=== PATIENT | female | born 1960 | race African-American/Black ===

== ENCOUNTER 2016-06-05 19:22 | Emergency (ER) | payer MEDICARE, MEDICAID ==
[~2016-06-05] VITALS: Ht 172.7 cm; Wt 145.1 kg
[~2016-06-05 19:22] MED LIST: AMLO5TAB2 PO; IBUP-1027 PO; LISI1TAB7 PO
[2016-06-05 19:55] VITALS: BP 197/95
[2016-06-05] MEDS ORDERED: CETIRIZINE HCL 10 MG TABLET PO STA (20:15)
[2016-06-05] MEDS ORDERED: KETOTIFEN FUMARATE 0.025% OPHT SOLUTION 5ML BOTTLE. OU ONE (20:30)
--- NOTE | 2016-06-05 20:35 | PHYS DOC ---
Past Medical History Past Medical History: Arthritis, Asthma, Diabetes-Type II, High Cholesterol, Hypertension Additional Past Medical Histor: ALLERGIES Past Surgical History: Other Additional Past Surgical Histo: BREAST BIOPSY Alcohol Use: None Drug Use: None Adult General Chief Complaint Chief Complaint: EYE PROBLEMS HPI HPI Patient is a 55 year old female with history of hypertension high cholesterol asthma and seasonal allergies and diabetes type 2 who presents with a ruptured blood vessel on her left upper eye that she noted today. Patient states she's had allergy symptoms in the last couple days making her blow her nose very hard. Patient denies any fever. She has history of hypertension and took her blood pressure medicine prior to coming to the ED. She has no headache, chest pain or shortness of breath. Review of Systems Review of Systems Constitutional: Denies fever or chills [] Eyes: a ruptured blood vessel on her left upper eye HENT: Denies nasal congestion or sore throat [] Respiratory: Denies cough or shortness of breath [] Cardiovascular: No additional information not addressed in HPI [] GI: Denies abdominal pain, nausea, vomiting, bloody stools or diarrhea [] : Denies dysuria or hematuria [] Musculoskeletal: Denies back pain or joint pain [] Integument: Denies rash or skin lesions [] Neurologic: Denies headache, focal weakness or sensory changes [] Endocrine: Denies polyuria or polydipsia [] Current Medications Current Medications Current Medications Medications (Trade) Dose Ordered Sig/Marsha Start Time Stop Time Status Last Admin Dose Admin Cetirizine HCl (Zyrtec) 10 mg 1X STAT 06/05/16 20:15 06/05/16 20:23 DC Ketotifen Fumarate (Zaditor) 1 drop 1X ONCE 06/05/16 20:30 06/05/16 20:31 DC Allergies Allergies Allergies Coded Allergies Type Severity Reaction Last Updated Verified levofloxacin Allergy Intermediate 03/11/15 Yes sulfamethoxazole Allergy Intermediate 03/11/15 Yes trimethoprim Allergy Intermediate 03/11/15 Yes Physical Exam Physical Exam Constitutional: Well developed, well nourished, no acute distress, non-toxic appearance. [] HENT: Normocephalic, atraumatic, bilateral external ears normal, oropharynx moist, no oral exudates, nose normal. [] Eyes: PERRLA, EOMI, small subconjunctival hemorrhage noted on the left conjunctiva at 12 o'clock position. Neck: Normal range of motion, no tenderness, supple, no stridor. [] Cardiovascular:Heart rate regular rhythm, no murmur [] Lungs & Thorax: Bilateral breath sounds clear to auscultation [] Abdomen: Bowel sounds normal, soft, no tenderness, no masses, no pulsatile masses. [] Skin: Warm, dry, no erythema, no rash. [] Back: No tenderness, no CVA tenderness. [] Extremities: No tenderness, no cyanosis, no clubbing, ROM intact, no edema. [] Neurologic: Alert and oriented X 3, normal motor function, normal sensory function, no focal deficits noted. [] Psychologic: Affect normal, judgement normal, mood normal. [] Current Patient Data Vital Signs Vital Signs Date Time Temp Pulse Resp B/P Pulse Ox O2 Delivery O2 Flow Rate FiO2 06/05/16 19:55 98.0 72 20 99 Room Air 98.0 EKG EKG [] Radiology/Procedures Radiology/Procedures [] Course & Med Decision Making Course & Med Decision Making Pertinent Labs and Imaging studies reviewed. (See chart for details) Patient has subconjunctival hemorrhage that she noted today, she's had allergy symptoms and has been blowing her nose very hard which could've caused this. She also has history of hypertension with blood pressure at 197/95 on arrival to the ED, she states she took lisinopril, HCTZ and another blood pressure medicine prior to coming to the ED. She has no headache, she has no vision loss. Her eyes are teary consistent with allergic conjunctivitis. She was given Zaditor eyedrops in the ED as well as Zyrtec. She was encouraged to recheck her blood pressure today before going to bed and let her PCP know if it is still high. She has no cardiac or neurological symptoms right now. She was provided return precautions and discharged in stable condition. Dragon Disclaimer Dragon Disclaimer This electronic medical record was generated, in whole or in part, using a voice recognition dictation system. Departure Departure Impression: Primary Impression: Subconjunctival hemorrhage of left eye Additional Impressions: Accelerated hypertension Allergic conjunctivitis of left eye Disposition: 01 HOME, SELF-CARE Condition: STABLE Referrals: NON,STAFF (PCP) Follow-up with your doctor as soon as possible if your blood pressure is still high. Patient Instructions: Allergic Conjunctivitis, [id number], Subconjunctival Hemorrhage-Brief Additional Instructions: You were seen for subconjunctival hemorrhage which is a ruptured blood vessel in your eye. This could be caused by many things including blowing your nose hard, hypertension etc. Use the prescribed eyedrop as ordered 1-2 drops in every area twice a day for allergies. Take Zyrtec for allergies. Recheck your blood pressure when you get home, if it still elevated, contact your doctor. You can come back to the ED if you have any concerning symptoms including but not limited to chest pain or shortness of breath or vision loss. Scripts Cetirizine Hcl (Zyrtec)10 Mg Tablet1 Tab PO DAILY #30 TAB Ref 3 Prov:KARMEN CROSS APRN 06/05/16 Problem Qualifiers KARMEN CROSS APRN Jun 05, 2016 20:35
[2016-06-05] MEDS ORDERED: CETI10TA22 PO (20:41)
== END 2016-06-05 20:48 | disposition home or self-care (01) ==
LOC: ER 19:22
DX: H11.32 Conjunctival hemorrhage, left eye (principal); H10.9 Unspecified conjunctivitis; I10 Essential (primary) hypertension; J45.909 Unspecified asthma, uncomplicated; E78.00 Pure hypercholesterolemia, unspecified; E11.9 Type 2 diabetes mellitus without complications; M19.90 Unspecified osteoarthritis, unspecified site; Z88.1 Allergy status to other antibiotic agents
CPT/HCPCS: 99283

== ENCOUNTER 2016-07-15 10:26 | Emergency (ER) | payer MEDICARE, MEDICAID ==
[~2016-07-15] VITALS: Ht 172.7 cm; Wt 145.1 kg
[~2016-07-15 10:26] MED LIST changes: +CETI10TA22 PO
[2016-07-15 10:40] VITALS: BP 149/73
[2016-07-15] MEDS ORDERED: AMOX1TAB61 PO (11:16)
[2016-07-15] MEDS ORDERED: ERYT1OIN6 EACHEYE (11:16)
--- NOTE | 2016-07-15 11:16 | PHYS DOC ---
Past Medical History Past Medical History: Arthritis, Asthma, Diabetes-Type II, High Cholesterol, Hypertension, Other Additional Past Medical Histor: ALLERGIES Past Surgical History: Other Additional Past Surgical Histo: BREAST BIOPSY Alcohol Use: None Drug Use: None Adult General Chief Complaint Chief Complaint: EYE PROBLEMS HPI HPI Patient is a 55 year old female presents emergency department stating that she has had bilateral watery eyes with some yellow drainage coming from them for the last few days. She states that she has been taking her allergy medication as normal. She states that she has her normal nasal drainage and discharge. She denies any sinus discomfort. She denies cough congestion fever. Review of Systems Review of Systems Constitutional: Denies fever or chills [] Eyes: Denies change in visual acuity, C/o redness, bilateral eye burning[] HENT: Denies nasal congestion or sore throat [] Respiratory: Denies cough or shortness of breath [] Cardiovascular: No additional information not addressed in HPI [] GI: Denies abdominal pain, nausea, vomiting, bloody stools or diarrhea [] : Denies dysuria or hematuria [] Musculoskeletal: Denies back pain or joint pain [] Integument: Denies rash or skin lesions [] Neurologic: Denies headache, focal weakness or sensory changes [] Allergies Allergies Allergies Coded Allergies Type Severity Reaction Last Updated Verified levofloxacin Allergy Intermediate 03/11/15 Yes sulfamethoxazole Allergy Intermediate 03/11/15 Yes trimethoprim Allergy Intermediate 03/11/15 Yes Physical Exam Physical Exam Constitutional: Well developed, well nourished, no acute distress, non-toxic appearance. [] HENT: Normocephalic, atraumatic, bilateral external ears normal, oropharynx moist, no oral exudates, nose normal. Bilateral tympanic membranes appear to be normal. Throat has erythematous with no postnasal drip no uvula deviation noted patient with frontal sinus tenderness no maxillary sinus tenderness noted.Anterior cervical adenopathy noted Eyes: PERRLA, EOMI, bilateral conjunctiva appears to be red with yellow drainage noted inside the eye. Neck: Normal range of motion, no tenderness, supple, no stridor. [] Cardiovascular:Heart rate regular rhythm, no murmur [] Lungs & Thorax: Bilateral breath sounds clear to auscultation [] Skin: Warm, dry, no erythema, no rash. [] Back: No tenderness Extremities: No tenderness, no cyanosis, no clubbing, ROM intact, no edema. [] Neurologic: Alert and oriented X 3, normal motor function, normal sensory function, no focal deficits noted. [] Psychologic: Affect normal, judgement normal, mood normal. [] Current Patient Data Vital Signs Vital Signs Date Time Temp Pulse Resp B/P Pulse Ox O2 Delivery O2 Flow Rate FiO2 07/15/16 10:40 99 82 20 149/73 96 Room Air 99.0 EKG EKG [] Radiology/Procedures Radiology/Procedures [] Course & Med Decision Making Course & Med Decision Making Pertinent Labs and Imaging studies reviewed. (See chart for details) Patient will be discharged home in stable condition. She'll be placed on some Augmentin for sinusitis infection. We'll also provide her with eyedrops for conjunctivitis. She will be provided with a 2 and marketing operations specialist in which she can follow-up within 24 hours. Patient was provided with signs and symptoms to return back to emergency department. Patient agrees with discharge instructions treatment regimens and follow-up recommendations. [] Dragon Disclaimer Dragon Disclaimer This electronic medical record was generated, in whole or in part, using a voice recognition dictation system. Departure Departure Impression: Primary Impression: Allergic conjunctivitis of left eye Additional Impression: Acute sinusitis Disposition: 01 HOME, SELF-CARE Condition: STABLE Referrals: NON,STAFF (PCP) Riley HADDAD MD Patient Instructions: Allergic Conjunctivitis, [id number], Sinusitis, Easy-to -Read Additional Instructions: Activity as tolerated. Medications as prescribed. Continue with your allergy medications you can take at home. Washcloths to help with pain and discomfort for the eyes. If you're eyes are mattered shut use a warm washcloth to help remove the drainage and discharge. Follow-up with ophthalmology tomorrow. Return back to emergency prior signs and symptoms of become worse. Scripts Amoxicillin/Potassium Clav (Augmentin 875-125 Tablet)1 Each Tablet1 Tab PO BID # 20 TAB Prov:SARA UMANZOR APRN 07/15/16 Erythromycin Base (Erythromycin)3.5 Gm Oint...g.1 Norma EACHEYE TID #3.[address] in bilateral eye for the next 7 days Prov:SARA UMANZOR APRN 07/15/16 Problem Qualifiers SARA UMANZOR APRN Jul 15, 2016 11:16
== END 2016-07-15 11:18 | disposition home or self-care (01) ==
LOC: ER 10:26
DX: H10.12 Acute atopic conjunctivitis, left eye (principal); J01.10 Acute frontal sinusitis, unspecified; M19.90 Unspecified osteoarthritis, unspecified site; J45.909 Unspecified asthma, uncomplicated; E11.9 Type 2 diabetes mellitus without complications; E78.00 Pure hypercholesterolemia, unspecified; I10 Essential (primary) hypertension; Z88.1 Allergy status to other antibiotic agents; Z88.2 Allergy status to sulfonamides
CPT/HCPCS: 99283

== ENCOUNTER 2016-12-24 22:42 | Emergency (ER) | payer MEDICARE, MEDICAID ==
[~2016-12-24] VITALS: Ht 172.7 cm; Wt 145.1 kg
[~2016-12-24 22:42] MED LIST changes: +AMOX1TAB61 PO; +ERYT1OIN6 EACHEYE
[2016-12-24 23:08] VITALS: BP 215/99
[2016-12-24] MEDS ORDERED: AMLO10TA2 PO (23:17)
[2016-12-24] MEDS ORDERED: CLIN300C8 PO (23:17)
[2016-12-24] MEDS ORDERED: IBUP-1060 PO (23:17)
[2016-12-24] MEDS ORDERED: LISI-375 PO (23:17)
--- NOTE | 2016-12-24 23:17 | PHYS DOC ---
Past Medical History Past Medical History: Arthritis, Asthma, Diabetes-Type II, High Cholesterol, Hypertension, Other Additional Past Medical Histor: ALLERGIES Past Surgical History: Other Additional Past Surgical Histo: BREAST BIOPSY Alcohol Use: None Drug Use: None Adult General Chief Complaint Chief Complaint: DENTAL PROBLEM [facility] Patient is a 56 year old female presents to the emergency department with complaints of left lower dental pain. She also complains of high blood pressure stating that she is on her blood pressure medicine for 3-5 days because it is "lost in my car somewhere". Patient denies headache, lightheadedness, nausea, vomiting, chest pain, abdominal pain. She nausea as of breath. Review of Systems Review of Systems Constitutional: Denies fever or chills [] Eyes: Denies change in visual acuity, redness, or eye pain [] HENT: Oral pain Respiratory: Denies cough or shortness of breath [] Cardiovascular: No additional information not addressed in HPI [] GI: Denies abdominal pain, nausea, vomiting, bloody stools or diarrhea [] : Denies dysuria or hematuria [] Musculoskeletal: Denies back pain or joint pain [] Integument: Denies rash or skin lesions [] Neurologic: Denies headache, focal weakness or sensory changes [] Endocrine: Denies polyuria or polydipsia [] Allergies Allergies Allergies Coded Allergies Type Severity Reaction Last Updated Verified levofloxacin Allergy Intermediate 03/11/15 Yes sulfamethoxazole Allergy Intermediate 03/11/15 Yes trimethoprim Allergy Intermediate 03/11/15 Yes Physical Exam Physical Exam Constitutional: Well developed, well nourished, no acute distress, non-toxic appearance. [] HENT: Normocephalic, atraumatic, bilateral external ears normal, oropharynx moist, no oral exudates, nose normal. Left lower gingiva around tooth #20 with erythema, mild tenderness to palpate. [] Eyes: PERRLA, EOMI, conjunctiva normal, no discharge. [] Neck: Normal range of motion, no tenderness, supple, no stridor. [] Cardiovascular:Heart rate regular rhythm, no murmur [] Lungs & Thorax: Bilateral breath sounds clear to auscultation [] Abdomen: Bowel sounds normal, soft, no tenderness, no masses, no pulsatile masses. [] Skin: Warm, dry, no erythema, no rash. [] Back: No tenderness, no CVA tenderness. [] Extremities: No tenderness, no cyanosis, no clubbing, ROM intact, no edema. [] Neurologic: Alert and oriented X 3, normal motor function, normal sensory function, no focal deficits noted. [] Psychologic: Affect normal, judgement normal, mood normal. [] Current Patient Data Vital Signs Vital Signs Date Time Temp Pulse Resp B/P (MAP) Pulse Ox O2 Delivery O2 Flow Rate FiO2 12/24/16 23:08 97.3 81 20 95 Room Air 97.3 EKG EKG [] Radiology/Procedures Radiology/Procedures [] Course & Med Decision Making Course & Med Decision Making Pertinent Labs and Imaging studies reviewed. (See chart for details) [] Dragon Disclaimer Dragon Disclaimer This electronic medical record was generated, in whole or in part, using a voice recognition dictation system. Departure Departure Impression: Primary Impression: Hypertension Additional Impression: Odontalgia Disposition: HOME, SELF-CARE Condition: STABLE Referrals: MANUEL RODRIGUEZ SHANK CARRIER-C (PCP) Patient Instructions: Dental Pain, Hypertension Scripts Lisinopril/Hydrochlorothiazide (ZESTORETIC 20-25 MG TABLET) 1 Each Tablet 1 TAB PO DAILY, #30 TAB 5 Refills Prov: NITHYA PERLA APRN 12/24/16 Amlodipine Besylate (AMLODIPINE BESYLATE) 10 Mg Tablet 10 MG PO DAILY, #30 TAB Prov: NITHYA PERLA APRN 12/24/16 Ibuprofen (IBUPROFEN) 800 Mg Tablet 800 MG PO PRN Q6HRS Y for INFLAMMATION, #20 TAB Prov: NITHYA PERLA APRN 12/24/16 Clindamycin Hcl (CLINDAMYCIN HCL) 300 Mg Capsule 1 CAP PO TID, #30 CAP Prov: NITHYA PERLA APRN 12/24/16 Problem Qualifiers Primary Impression: Hypertension Hypertension type: unspecified Qualified Codes: I10 - Essential (primary) hypertension NITHYA PERLA APRN Dec 24, 2016 23:17
== END 2016-12-24 23:41 | disposition home or self-care (01) ==
LOC: ER 22:42
DX: K08.9 Disorder of teeth and supporting structures, unspecified (principal); I10 Essential (primary) hypertension; E11.9 Type 2 diabetes mellitus without complications; E78.00 Pure hypercholesterolemia, unspecified; J45.909 Unspecified asthma, uncomplicated; M19.90 Unspecified osteoarthritis, unspecified site; Z88.1 Allergy status to other antibiotic agents; Z88.2 Allergy status to sulfonamides; Z88.8 Allergy status to other drugs, medicaments and biological substances
CPT/HCPCS: 99283

== ENCOUNTER 2018-02-11 17:44 | Emergency (ER) | payer MEDICARE, MEDICAID ==
[~2018-02-11] VITALS: Ht 172.7 cm; Wt 145.1 kg
[~2018-02-11 17:44] MED LIST changes: +AMLO10TA6 PO; -AMLO5TAB2 PO; +AMLO5TAB7 PO; +CLIN300C8 PO; +IBUP-1060 PO; +LISI-375 PO
[2018-02-11 18:40] VITALS: BP 151/71
[2018-02-11] MEDS ORDERED: LIDOCAINE WITH 8.4% SOD BICARB 3 ML DISP.SYRIN. INJ ONE (18:45)
[2018-02-11] MEDS ORDERED: DIPHTH,PERTUSS(ACELL),TET TOX 0.5 ML DISP.SYRIN. VAX IM ONE (18:45)
--- NOTE | 2018-02-11 19:20 | RAD ---
EXAM: PA, oblique and lateral views of the right hand DATE: 02/11/2018 6:55 PM INDICATION: laceration on around 2 and 3 mc COMPARISON: No Prior FINDINGS/ IMPRESSION: Laceration at the dorsal aspect of the second third metacarpals with associated soft tissue swelling is seen. No definite retained radiopaque foreign body. No definite associated osseous abnormality. No evidence of acute fracture or dislocation. Electronically signed by: David Garay MD (02/11/2018 7:17 PM) [facility]
--- NOTE | 2018-02-11 19:26 | PHYS DOC ---
Past Medical History Past Medical History: Arthritis, Asthma, Diabetes-Type II, High Cholesterol, Hypertension, Other Additional Past Medical Histor: ALLERGIES Past Surgical History: Other Additional Past Surgical Histo: BREAST BIOPSY Alcohol Use: None Drug Use: None Adult General Chief Complaint Chief Complaint: LACERATION/AVULSION [facility] HPI Patient is a 57 year old female who presents with went to shut a door after and oriented with her niece and the niece was on the underside [facility] and the patient scraped her right hand fourth digit at the knuckle on a nail that was sticking out of the wall. Patient is a 2 some ear laceration. Edges are approximated. Patient states she does need a tetanus shot. She is diabetic and has hypertension. Review of Systems Review of Systems Constitutional: Denies fever or chills [] Eyes: Denies change in visual acuity, redness, or eye pain [] HENT: Denies nasal congestion or sore throat [] Respiratory: Denies cough or shortness of breath [] Cardiovascular: No additional information not addressed in HPI [] GI: Denies abdominal pain, nausea, vomiting, bloody stools or diarrhea [] : Denies dysuria or hematuria [] Musculoskeletal: Denies back pain or joint pain [] Integument: 2 cm laceration to the right hand fourth digit at the knuckle. Denies rash or skin lesions [] Neurologic: Denies headache, focal weakness or sensory changes [] Endocrine: Denies polyuria or polydipsia [] All other systems were reviewed and found to be within normal limits, except as documented in this note. Current Medications Current Medications Current Medications Medications (Trade) Dose Ordered Sig/Marsha Start Time Stop Time Status Last Admin Dose Admin Diphtheria/ Tetanus/Acell Pertussis (Boostrix) 0.5 ml ONCE ONCE 02/11/18 18:45 02/11/18 18:49 DC 02/11/18 19:16 0.5 ML Lidocaine/Sodium Bicarbonate (Buffered Lidocaine 1%) 3 ml 1X ONCE 02/11/18 18:45 02/11/18 18:49 DC 02/11/18 19:15 3 ML Allergies Allergies Allergies Coded Allergies Type Severity Reaction Last Updated Verified levofloxacin Allergy Intermediate 03/11/15 Yes sulfamethoxazole Allergy Intermediate 03/11/15 Yes trimethoprim Allergy Intermediate 03/11/15 Yes Physical Exam Physical Exam Constitutional: Well developed, well nourished, no acute distress, non-toxic appearance. [] HENT: Normocephalic, atraumatic, bilateral external ears normal, oropharynx moist, no oral exudates, nose normal. [] Eyes: PERRLA, EOMI, conjunctiva normal, no discharge. [] Neck: Normal range of motion, no tenderness, supple, no stridor. [] Cardiovascular:Heart rate regular rhythm, no murmur [] Lungs & Thorax: Bilateral breath sounds clear to auscultation [] Abdomen: Bowel sounds normal, soft, no tenderness, no masses, no pulsatile masses. [] Skin: 2 cm, approximated edged, laceration at the right hand fourth knuckle fourth finger. Bleeding Controlled. Warm, dry, no erythema, no rash. [] Back: No tenderness, no CVA tenderness. [] Extremities: No tenderness, no cyanosis, no clubbing, ROM intact, no edema. [] Neurologic: Alert and oriented X 3, normal motor function, normal sensory function, no focal deficits noted. [] Psychologic: Affect normal, judgement normal, mood normal. [] Current Patient Data Vital Signs Vital Signs Date Time Temp Pulse Resp B/P (MAP) Pulse Ox O2 Delivery O2 Flow Rate FiO2 02/11/18 18:40 98.0 88 18 151/71 (97) 98 Room Air 98.0 EKG EKG [] Radiology/Procedures Radiology/Procedures [] Impressions: [facility] [address] [place] [address] IMAGING REPORT Signed PATIENT: VERONICA BROOKS ACCOUNT: [id number] : 1960 LOCATION: ER AGE: 57 SEX: F EXAM STATUS: REG ER ORD. PHYSICIAN: SARA MARC APRN REASON: laceration PROCEDURE: HAND RIGHT 3V EXAM: PA, oblique and lateral views of the right hand DATE: 02/11/2018 6:55 PM INDICATION: laceration on around 2 and 3 mc COMPARISON: No Prior FINDINGS/ IMPRESSION: Laceration at the dorsal aspect of the second third metacarpals with associated soft tissue swelling is seen. No definite retained radiopaque foreign body. No definite associated osseous abnormality. No evidence of acute fracture or dislocation. Electronically signed by: David Zaragoza MD (02/11/2018 7:17 PM) [facility] DICTATED and SIGNED BY: DAVID ZARAGOZA MD DATE: 02/11/181915 Course & Med Decision Making Course & Med Decision Making Patient is a 57 year old female who presents with went to shut a door after and oriented with her niece and the niece was on the underside [facility] and the patient scraped her right hand fourth digit at the knuckle on a nail that was sticking out of the wall. Patient is a 2 some ear laceration. Edges are approximated. Patient states she does need a tetanus shot. She is diabetic and has hypertension. X-ray shows no acute findings. I will give her Keflex antibiotic prescription for prophylactic since she is diabetic. She is to follow up either with her primary care or here in the ED to have suture removal in 5-7 days or come in sooner if there are any signs of infection. The laceration is cleaned out with Betadine and flushed. Alert and oriented. Patient is stable and in no distress. Laceration Repair by me: Anesthesia: 1% lidocaine locally Location: Right hand fourth finger knuckle Tendon/Joint/Nerves: No injury Foreign body: None detected after copious irrigation and exploration Technique: 3 Simple Interrupted Sutures Complexity: No subcutaneous sutures/mucosal repair/edge excision Post Closure Length: 2 cm Patient's bleeding was easily controlled in the department and there is no indication of anemia. No evidence of compartment syndrome, neurologic injury, vascular injury, open joint, tendon laceration, or foreign body. Patient is appropriate for outpatient follow up. 48 hour wound check. Scar minimization instructions given. [] Dragon Disclaimer Dragon Disclaimer This electronic medical record was generated, in whole or in part, using a voice recognition dictation system. Departure Departure Impression: Primary Impression: Laceration Disposition: 01 HOME, SELF-CARE Condition: STABLE Referrals: MANUEL RODRIGUEZ-C (PCP) Patient Instructions: Laceration Care, Adult Additional Instructions: To the ED in 5-7 days have stitches removed. Take medications as prescribed. Scripts Cephalexin (KEFLEX) 500 Mg Capsule 500 MG PO QID for 5 Days, #20 CAP Prov: SARA MARC APRN 02/11/18 Attending Signature Attending Signature I have reviewed the PA/MUSIC STORE MANAGER's note and plan of care. I was available for consultation as needed during the patient's visit in the emergency department. I agree with the clinical impression, plan, and disposition. SARA MARC APRN Feb 11, 2018 19:26 DON PHAM DO Feb 13, 2018 10:59
[2018-02-11] MEDS ORDERED: CEPH-264 PO (19:55)
== END 2018-02-11 20:10 | disposition home or self-care (01) ==
LOC: ER 17:44
DX: S61.214A Laceration without foreign body of right ring finger without damage to nail, initial encounter (principal); E78.00 Pure hypercholesterolemia, unspecified; E11.9 Type 2 diabetes mellitus without complications; J45.909 Unspecified asthma, uncomplicated; I10 Essential (primary) hypertension; Z88.1 Allergy status to other antibiotic agents; Z88.2 Allergy status to sulfonamides; Z88.8 Allergy status to other drugs, medicaments and biological substances; W45.0XXA Nail entering through skin, initial encounter; Y93.89 Activity, other specified; Y92.89 Other specified places as the place of occurrence of the external cause; Y99.8 Other external cause status
CPT/HCPCS: 12001; 73130; 90471; 90715; 99284-25; 99285-25

== ENCOUNTER 2018-02-28 15:29 | Emergency (ER) | payer MEDICARE, MEDICAID ==
[~2018-02-28] VITALS: Ht 177.8 cm; Wt 145.1 kg
[~2018-02-28 15:29] MED LIST changes: +CEPH-264 PO
[2018-02-28 15:42] VITALS: BP 201/90
--- NOTE | 2018-02-28 15:42 | PHYS DOC ---
Past Medical History Past Medical History: Arthritis, Asthma, Diabetes-Type II, High Cholesterol, Hypertension, Other Additional Past Medical Histor: ALLERGIES Past Surgical History: Other Additional Past Surgical Histo: BREAST BIOPSY Alcohol Use: None Drug Use: None Adult General Chief Complaint Chief Complaint: SUTURE/STAPLE REMOVAL HPI HPI Patient is a 57 year old female who presents for suture removal from the right hand. She states sutures have been in for 12 days. Patient denies any issues with the wound healing. Review of Systems Review of Systems Constitutional: Denies fever or chills [] Musculoskeletal: Denies back pain or joint pain [] Integument: Visit for suture removal from the right hand Neurologic: Denies headache, focal weakness or sensory changes [] All other systems were reviewed and found to be within normal limits, except as documented in this note. Allergies Allergies Allergies Coded Allergies Type Severity Reaction Last Updated Verified levofloxacin Allergy Intermediate 03/11/15 Yes sulfamethoxazole Allergy Intermediate 03/11/15 Yes trimethoprim Allergy Intermediate 03/11/15 Yes Physical Exam Physical Exam Constitutional: Well developed, well nourished, no acute distress, non-toxic appearance. [] Skin: Warm, dry, no erythema, no rash. Right hand along the fifth knuckle with well approximated laceration site with 2 interrupted sutures. No signs of infection. Back: No tenderness, no CVA tenderness. [] Extremities: No tenderness, no cyanosis, no clubbing, ROM intact, no edema. [] Neurologic: Alert and oriented X 3, normal motor function, normal sensory function, no focal deficits noted. [] Psychologic: Affect normal, judgement normal, mood normal. [] EKG EKG [] Radiology/Procedures Radiology/Procedures [] Course & Med Decision Making Course & Med Decision Making Pertinent Labs and Imaging studies reviewed. (See chart for details) This is a 57 year-old female presenting from for suture removal. Patient had 2 interrupted sutures on the right hand which were removed by me. No signs of infection to the area. Follow-up with PCP as needed. Dragon Disclaimer Dragon Disclaimer This electronic medical record was generated, in whole or in part, using a voice recognition dictation system. Departure Departure Impression: Primary Impression: Visit for suture removal Disposition: 01 HOME, SELF-CARE Condition: STABLE Referrals: MANUEL RODRIGUEZ-Amanuel (PCP) follow up with your doctor as needed Patient Instructions: Suture Removal-Brief Additional Instructions: We removed stitches from your right hand. Keep the area clean and dry. Follow- up with your doctor as needed. KARMEN CROSS APRN Feb 28, 2018 15:42
== END 2018-02-28 15:53 | disposition home or self-care (01) ==
LOC: ER 15:29
DX: S61.411D Laceration without foreign body of right hand, subsequent encounter (principal); M19.90 Unspecified osteoarthritis, unspecified site; J45.909 Unspecified asthma, uncomplicated; E78.00 Pure hypercholesterolemia, unspecified; I10 Essential (primary) hypertension; E11.9 Type 2 diabetes mellitus without complications; Z88.1 Allergy status to other antibiotic agents; Z88.2 Allergy status to sulfonamides; X58.XXXD Exposure to other specified factors, subsequent encounter
CPT/HCPCS: 99281

== ENCOUNTER 2019-05-09 17:27 | Emergency (ER) | payer MEDICAID, MEDICARE ==
[~2019-05-09] VITALS: Ht 172.7 cm; Wt 143.1 kg
[~2019-05-09 17:27] MED LIST changes: -AMLO10TA6 PO; +AMLO10TA8 PO; +AMLO5TAB10 PO; -AMLO5TAB7 PO; -CETI10TA22 PO; +CETI10TA24 PO; +LISI1TAB20 PO; -LISI1TAB7 PO
[2019-05-09 19:41] VITALS: BP 148/76
[2019-05-09] MEDS ORDERED: ACETAMINOPHEN 500 MG TABLET PO ONE (20:00)
[2019-05-09] MEDS ORDERED: magic mouthwash SWSP (20:14)
--- NOTE | 2019-05-09 20:14 | PHYS DOC ---
Past Medical History Past Medical History: Arthritis, Asthma, Diabetes-Type II, High Cholesterol, Hypertension, Other Additional Past Medical Histor: ALLERGIES Past Surgical History: Other Additional Past Surgical Histo: BREAST BIOPSY Smoking Status: Never Smoker Alcohol Use: None Drug Use: None Adult General Chief Complaint Chief Complaint: SORE THROAT HPI HPI Patient is a 58 year old AA female who presents to the emergency department with complaints of feeling like something is stuck in the back of her throat since awakening today. She denies any difficulty breathing, or swallowing. She states that the back portion of her mouth feels like it is full. She denies any fever, ear pain, cough, shortness of breath, wheezing, nausea, vomiting, diarrhea, abdominal pain, chest pain, palpitations. She states that it feels like her upper palate has fallen down. Patient denies any known injury. She cur rently denies the pain. Review of Systems Review of Systems All other ROS is negative unless otherwise noted in HPI. Current Medications Current Medications Current Medications Medications (Trade) Dose Ordered Sig/Marsha Start Time Stop Time Status Last Admin Dose Admin Acetaminophen (Tylenol) 1,000 mg 1X ONCE 05/09/19 20:00 05/09/19 20:02 DC Allergies Allergies Allergies Coded Allergies Type Severity Reaction Last Updated Verified levofloxacin Allergy Intermediate 03/11/15 Yes sulfamethoxazole Allergy Intermediate 03/11/15 Yes trimethoprim Allergy Intermediate 03/11/15 Yes Physical Exam Physical Exam See Above Constitutional: Well developed, well nourished, no acute distress, non-toxic appearance, obese. [] HENT: Normocephalic, atraumatic, bilateral external ears normal, oropharynx moist, nose normal; yellow colored ulceration noted to right lateral side of the uvula consistent with a fist ulcer, mild swelling of uvula noted, posterior pharynx is normal, 2+ tonsils bilaterally without exudate Eyes: PERRLA, EOMI, conjunctiva normal, no discharge. [] Neck: Normal range of motion, no tenderness, supple, no stridor. [] Cardiovascular:Heart rate regular rhythm Lungs & Thorax: Bilateral breath sounds clear to auscultation, Respirations even and unlabored, no retractions, no respiratory distress [] Skin: Warm, dry, no erythema, no rash. [] Back: No tenderness Extremities: No cyanosis, ROM intact Neurologic: Alert and oriented X 3, no focal deficits noted. [] Psychologic: Affect normal, judgement normal, mood normal. [] Current Patient Data Vital Signs Vital Signs Date Time Temp Pulse Resp B/P (MAP) Pulse Ox O2 Delivery O2 Flow Rate FiO2 05/09/19 19:41 76 16 148/76 (100) 99 Room Air 05/09/19 19:01 98.4 98.4 EKG EKG [] Radiology/Procedures Radiology/Procedures [] Course & Med Decision Making Course & Med Decision Making Pertinent Labs and Imaging studies reviewed. (See chart for details) [] Dragon Disclaimer Dragon Disclaimer This electronic medical record was generated, in whole or in part, using a voice recognition dictation system. Departure Departure Impression: Primary Impression: Swollen uvula Additional Impression: Minor aphthous ulceration Disposition: HOME, SELF-CARE Condition: STABLE Referrals: NO PCP (PCP) Patient Instructions: Oral Ulcers Additional Instructions: Fill the prescription and use as directed. Recommend that you avoid foods that are spicy, acetic, crunchy, or carbonated while the ulceration heals. Recommend bland diet. Follow up with your primary care doctor if symptoms persist. Return to the ER if symptoms worsen. Scripts [magic mouthwash] No Conflict Check 10 ML SWSP Q4-6HRS PRN for PAIN for 4 Days, #120 ML 0 Refills mix equal parts benadryl elixir, viscous lidocaine, and maalox Prov: TRINI MICHAEL APRN 05/09/19 Problem Qualifiers TRINI MICHAEL APRN May 09, 2019 20:14
== END 2019-05-09 20:30 | disposition home or self-care (01) ==
LOC: ER 17:27
DX: K12.0 Recurrent oral aphthae (principal); K13.79 Other lesions of oral mucosa; E11.9 Type 2 diabetes mellitus without complications; E78.00 Pure hypercholesterolemia, unspecified; I10 Essential (primary) hypertension; J45.909 Unspecified asthma, uncomplicated; Z88.1 Allergy status to other antibiotic agents; Z88.2 Allergy status to sulfonamides
CPT/HCPCS: 99283

== ENCOUNTER 2019-06-25 15:43 | Emergency (ER) | payer MEDICARE, MEDICAID ==
[~2019-06-25] VITALS: Ht 172.7 cm; Wt 148.0 kg
[~2019-06-25 15:43] MED LIST changes: +magic mouthwash SWSP
[2019-06-25] MEDS ORDERED: MORPHINE SULFATE 10 MG/ML VIAL. IV ONE (16:45)
[2019-06-25] MEDS ORDERED: IV NORMAL SALINE 1000ML BAG 1,000 ML IV ONE (16:45)
[2019-06-25] MEDS ORDERED: FAMOTIDINE 20 MG/2 ML VIAL IVP ONE (16:45)
[2019-06-25] MEDS ORDERED: ONDANSETRON PF 4 MG/2 ML VIAL. IVP ONE (16:45)
[2019-06-25 16:57] LABS: BILIRUBIN,URINE NEGATIVE (NEG); CLARITY,URINE CLEAR; COLOR,URINE YELLOW; NITRITE,URINE NEGATIVE (NEG); PH,URINE 6.5 (<5.0-8.0); PROTEIN,URINE NEGATIVE (NEG-TRACE)
[2019-06-25 17:02] LABS: CALCIUM 9.4 mg/dL (8.5-10.1); GFR 69.1; POTASSIUM 3.8 mmol/L (3.5-5.1)
[2019-06-25 17:02] LABS: BARBITURATES NEG (NEG); BENZODIAZEPINES NEG (NEG); CANNABINOIDS NEG (NEG); COCAINE NEG (NEG); METHADONE NEG (NEG); OPIATES NEG (NEG); PHENCYCLIDINE NEG (NEG)
[2019-06-25 17:08] LABS: ALBUMIN 3.4 g/dL (3.4-5.0); ALBUMIN/GLOBULIN RATIO 0.7 (1.0-1.7); C-REACTIVE PROTEIN 29.4 mg/L (0-3.3); MAGNESIUM 1.7 mg/dL (1.8-2.4); TOTAL BILIRUBIN 0.7 mg/dL (0.2-1.0); TOTAL PROTEIN 8.6 g/dL (6.4-8.2)
[2019-06-25 17:10] LABS: BACTERIA,URINE FEW /HPF (0-FEW); SQUAMOUS EPITHELIAL CELL,UR FEW /LPF; WBC,URINE OCC /HPF (0-4)
[2019-06-25 17:11] LABS: RBC,URINE 0 /HPF (0-2)
[2019-06-25 17:17] LABS: AMPHETAMINE/METHAMPHETAMINE NEG (NEG)
[2019-06-25] MEDS ORDERED: IOHEXOL 300 MG/ML 100ML VIAL. IV ONE (17:30)
[2019-06-25] MEDS ORDERED: CONTRAST GIVEN. MC PRN (17:30)
--- NOTE | 2019-06-25 18:08 | RAD ---
CT abdomen pelvis with contrast dated 06/25/2019. No comparison available. CLINICAL INDICATION: Abdominal pain. TECHNIQUE: Contiguous axial imaging the abdomen and pelvis performed after the administration of 75 cc Omnipaque 300. One or more of the following individualized dose reduction techniques were utilized for this examination: 1. Automated exposure control 2. Adjustment of the mA and/or kV according to patient size 3. Use of iterative reconstruction technique. FINDINGS: Limited images of the lung bases are clear. Heart size is upper limits of normal. No pleural or pericardial effusion. There are scattered coronary calcifications. Liver is homogeneous in attenuation. No apparent mass. Biliary tree normal in caliber. There is heterogeneous density in the gallbladder lumen suggesting sludge and/or stones. Spleen is normal in size. Pancreas is atrophic. Adrenal glands are unremarkable. There is mild left hydronephrosis and hydroureter to the level the pelvis. Kidneys are otherwise symmetric. There is a mildly dilated loops of fluid-filled proximal small bowel with distal small bowel collapse. The colon and appendix are unremarkable. No lymphadenopathy. There is a trace amount of free fluid at the left paracolic gutter. Uterus is enlarged and heterogeneous, measuring up to 16.7 cm. Ovaries are not well evaluated. There is a trace amount of free pelvic fluid. No pelvic lymphadenopathy. Bone windows show no acute findings. Mild multilevel spondylosis. Small umbilical hernia containing only fat. IMPRESSION: 1. Enlarged heterogeneous uterus, possibly related to fibroid. Uterine malignancy cannot be excluded. Correlate with any prior imaging studies to assess for interval change. 2. Mildly dilated fluid-filled loops of proximal small bowel with distal small bowel collapse. An exact transition point is not identified. This could be related to ileus or enteritis. Partial small bowel obstruction cannot be excluded in the absence of oral contrast. 3. Mild left-sided hydronephrosis and hydroureter to the level of the large pelvic mass, likely related to extrinsic compression distally. 4. Cholelithiasis. Electronically signed by: Jack Herr MD (06/25/2019 6:05 PM) [id number]
[2019-06-25 18:26] LABS: BASO # 0.1 x10^3/uL (0.0-0.2); BASO % 1 % (0-3); EOS # 0.2 x10^3/uL (0.0-0.7); EOS % 2 % (0-3); HEMOGLOBIN 13.2 g/dL (12.0-15.5); LYMPH # 2.8 x10^3/uL (1.0-4.8); LYMPH % 23 % (24-48); MEAN CORPUSCULAR HEMOGLOBIN 28 pg (25-35); MEAN CORPUSCULAR HGB CONC 32 g/dL (31-37); MEAN CORPUSCULAR VOLUME 87 fL (79-100); MONO # 0.9 x10^3/uL (0.0-1.1); MONO % 8 % (0-9); NEUT # 8.2 x10^3/uL (1.8-7.7); NEUT % 67 % (31-73); PLATELET COUNT 330 x10^3/uL (140-400); RED BLOOD COUNT 4.71 x10^6/uL (3.50-5.40); RED CELL DISTRIBUTION WIDTH 12.2 % (11.5-14.5); WHITE BLOOD COUNT 12.1 x10^3/uL (4.0-11.0)
[2019-06-25] MEDS ORDERED: BISACODYL 5 MG TABLET.DR. PO STA (18:44)
[2019-06-25] MEDS ORDERED: LABETALOL 20 MG/4 ML DISP.SYRIN. IVP ONE (18:45)
[2019-06-25] MEDS ORDERED: MAGNESIUM CITRATE 296 ML SOLUTION. PO ONE (18:45)
[2019-06-25] MEDS ORDERED: DICY20TA3 PO (19:20)
[2019-06-25] MEDS ORDERED: ONDA4TAB7 PO (19:20)
--- NOTE | 2019-06-25 19:20 | PHYS DOC ---
Past Medical History Past Medical History: Arthritis, Asthma, Diabetes-Type II, High Cholesterol, Hypertension, Other Additional Past Medical Histor: ALLERGIES (KARMEN CROSS APRN) Past Surgical History: Other Additional Past Surgical Histo: BREAST BIOPSY (KARMEN CROSS APRN) Smoking Status: Never Smoker Alcohol Use: None Drug Use: None (KARMEN CROSS APRN) Attending Signature I have participated in the care of this patient and I have reviewed and agree with all pertinent clinical information above including history, exam, and recommendations. (EVIN ALVARENGA MD) Adult General Chief Complaint Chief Complaint: ABDOMINAL PAIN HPI HPI Patient is a 58 year old female with history of hypertension, diabetes type 2, high cholesterol, morbidly obese, chronic constipation for over 25 years, who presents to the ED today complaining of 10 out of 10 left-sided abdominal pain that began 2 days ago with intermittent episodes of nausea and vomiting. Patient denies any diarrhea. Reports her last bowel movement was yesterday and very had. She states she has chronic constipation and has followed up with multiple doctors including her own PCP and "they do not listen to her". She continues to report she was seen at [facility] yesterday for the same complaints and they worked her up. She states they did not send her home with any pain medicine. She reports the told that she has fibroids and told that she will receive a phone call from an [employer] but she has not received any call. Patient is very talkative. (KARMEN CROSS APRN) Review of Systems Review of Systems Constitutional: Denies fever or chills [] Eyes: Denies change in visual acuity, redness, or eye pain [] HENT: Denies nasal congestion or sore throat [] Respiratory: Denies cough or shortness of breath [] Cardiovascular: No additional information not addressed in HPI [] GI: Reports abdominal pain, vomiting, constipation, denies bloody stools or diarrhea [] : Denies dysuria or hematuria [] Musculoskeletal: Denies back pain or joint pain [] Integument: Denies rash or skin lesions [] Neurologic: Denies headache, focal weakness or sensory changes [] All other systems were reviewed and found to be within normal limits, except as documented in this note. (KARMEN CROSS APRN) Current Medications Current Medications Current Medications Medications (Trade) Dose Ordered Sig/Marsha Start Time Stop Time Status Last Admin Dose Admin Bisacodyl (Dulcolax Tab) 10 mg 1X STAT 06/25/19 18:44 06/25/19 18:48 DC 06/25/19 19:18 10 MG Famotidine (Pepcid Vial) 20 mg 1X ONCE 06/25/19 16:45 06/25/19 16:48 DC 06/25/19 17:21 20 MG Info (CONTRAST GIVEN -- Rx MONITORING) 1 each PRN DAILY PRN 06/25/19 17:30 06/25/19 20:19 DC Iohexol (Omnipaque 300 Mg/ml) 75 ml 1X ONCE 06/25/19 17:30 06/25/19 17:31 DC 06/25/19 17:45 75 ML Labetalol HCl (Normodyne Iv Push) 10 mg 1X ONCE 06/25/19 18:45 06/25/19 18:48 DC 06/25/19 19:19 10 MG Magnesium Citrate (Citroma) 296 ml 1X ONCE 06/25/19 18:45 06/25/19 18:48 DC 06/25/19 19:18 296 ML Morphine Sulfate (Morphine Sulfate) 5 mg 1X ONCE 06/25/19 16:45 06/25/19 16:48 DC 06/25/19 17:22 5 MG Ondansetron HCl (Zofran) 4 mg 1X ONCE 06/25/19 16:45 06/25/19 16:48 DC 06/25/19 17:22 4 MG Sodium Chloride 1,000 ml @ 1,000 mls/hr 1X ONCE 06/25/19 16:45 06/25/19 17:44 DC 06/25/19 17:25 1,000 MLS/HR (EVIN ALVARENGA MD) Allergies Allergies Allergies Coded Allergies Type Severity Reaction Last Updated Verified levofloxacin Allergy Intermediate 03/11/15 Yes sulfamethoxazole Allergy Intermediate 03/11/15 Yes trimethoprim Allergy Intermediate 03/11/15 Yes (EVIN ALVARENGA MD) Physical Exam Physical Exam Constitutional: Well developed, well nourished, no acute distress, non-toxic appearance. [] HENT: Normocephalic, atraumatic, bilateral external ears normal, oropharynx moist, no oral exudates, nose normal. [] Eyes: PERRLA, EOMI, conjunctiva normal, no discharge. [] Neck: Normal range of motion, no tenderness, supple, no stridor. [] Cardiovascular:Heart rate regular rhythm, no murmur [] Lungs & Thorax: Bilateral breath sounds clear to auscultation [] Abdomen: Obese abdomen. Bowel sounds normal, soft, diffuse tenderness throughout to the abdomen was on the left upper and lower quadrant, no masses, no pulsatile masses. No right lower quadrant tenderness Skin: Warm, dry, no erythema, no rash. [] Back: No tenderness, no CVA tenderness. [] Extremities: No tenderness, no cyanosis, no clubbing, ROM intact, no edema. [] Neurologic: Alert and oriented X 3, normal motor function, normal sensory function, no focal deficits noted. [] Psychologic: Very talkative patient (KARMEN CROSS APRN) Current Patient Data Vital Signs Vital Signs Date Time Temp Pulse Resp B/P (MAP) Pulse Ox O2 Delivery O2 Flow Rate FiO2 06/25/19 19:52 80 197/106 (136) 95 Room Air 06/25/19 16:05 98.5 18 98.5 (EVIN ALVARENGA MD) Lab Values Laboratory Tests Test 06/25/19 16:05 06/25/19 16:33 Urine Collection Type Unknown Urine Color Yellow Urine Clarity Clear Urine pH 6.5 (<5.0-8.0) Urine Specific [place] 1.015 (1.000-1.030) Urine Protein Negative mg/dL (NEG-TRACE) Urine Glucose (UA) 100 mg/dL (NEG) Urine Ketones (Stick) Negative mg/dL (NEG) Urine Blood Negative (NEG) Urine Nitrite Negative (NEG) Urine Bilirubin Negative (NEG) Urine Urobilinogen Dipstick 1.0 mg/dL (0.2 mg/dL) Urine Leukocyte Esterase Negative (NEG) Urine RBC 0 /HPF (0-2) Urine WBC Occ /HPF (0-4) Urine Squamous Epithelial Cells Few /LPF Urine Bacteria Few /HPF (0-FEW) Urine Opiates Screen Neg (NEG) Urine Methadone Screen Neg (NEG) Urine Barbiturates Neg (NEG) Urine Phencyclidine Screen Neg (NEG) Urine Amphetamine/Methamphetamine Neg (NEG) Urine Benzodiazepines Screen Neg (NEG) Urine Cocaine Screen Neg (NEG) Urine Cannabinoids Screen Neg (NEG) Urine Ethyl Alcohol Neg (NEG) White Blood Count 12.1 x10^3/uL (4.0-11.0) H Red Blood Count 4.71 x10^6/uL (3.50-5.40) Hemoglobin 13.2 g/dL (12.0-15.5) Hematocrit 41.0 % (36.0-47.0) Mean Corpuscular Volume 87 fL (79-100) Mean Corpuscular Hemoglobin 28 pg (25-35) Mean Corpuscular Hemoglobin Concent 32 g/dL (31-37) Red Cell Distribution Width 12.2 % (11.5-14.5) Platelet Count 330 x10^3/uL (140-400) Neutrophils (%) (Auto) 67 % (31-73) Lymphocytes (%) (Auto) 23 % (24-48) L Monocytes (%) (Auto) 8 % (0-9) Eosinophils (%) (Auto) 2 % (0-3) Basophils (%) (Auto) 1 % (0-3) Neutrophils # (Auto) 8.2 x10^3/uL (1.8-7.7) H Lymphocytes # (Auto) 2.8 x10^3/uL (1.0-4.8) Monocytes # (Auto) 0.9 x10^3/uL (0.0-1.1) Eosinophils # (Auto) 0.2 x10^3/uL (0.0-0.7) Basophils # (Auto) 0.1 x10^3/uL (0.0-0.2) Sodium Level 131 mmol/L (136-145) L Potassium Level 3.8 mmol/L (3.5-5.1) Chloride Level 96 mmol/L (98-107) L Carbon Dioxide Level 27 mmol/L (21-32) Anion Gap 8 (6-14) Blood Urea Nitrogen 9 mg/dL (7-20) Creatinine 1.0 mg/dL (0.6-1.0) Estimated GFR (Cockcroft-Gault) 69.1 BUN/Creatinine Ratio 9 (6-20) Glucose Level 233 mg/dL (70-99) H Calcium Level 9.4 mg/dL (8.5-10.1) Magnesium Level 1.7 mg/dL (1.8-2.4) L Total Bilirubin 0.7 mg/dL (0.2-1.0) Aspartate Amino Transferase (AST) 15 U/L (15-37) Alanine Aminotransferase (ALT) 21 U/L (14-59) Alkaline Phosphatase 86 U/L (46-116) C-Reactive Protein, Quantitative 29.4 mg/L (0-3.3) H Total Protein 8.6 g/dL (6.4-8.2) H Albumin 3.4 g/dL (3.4-5.0) Albumin/Globulin Ratio 0.7 (1.0-1.7) L Lipase 52 U/L (73-393) L Ethyl Alcohol Level < 10 mg/dL (0-10) Laboratory Tests 06/25/19 16:33 Laboratory Tests 06/25/19 16:33 (EVIN ALVARENGA MD) EKG EKG [] (KARMEN CROSS APRN) Radiology/Procedures Radiology/Procedures []PROCEDURE: CT ABD PELV W/ IV CONTRST ONLY CT abdomen pelvis with contrast dated 06/25/2019. No comparison available. CLINICAL INDICATION: Abdominal pain. TECHNIQUE: Contiguous axial imaging the abdomen and pelvis performed after the administration of 75 cc Omnipaque 300. One or more of the following individualized dose reduction techniques were utilized for this examination: 1. Automated exposure control 2. Adjustment of the mA and/or kV according to patient size 3. Use of iterative reconstruction technique. FINDINGS: Limited images of the lung bases are clear. Heart size is upper limits of normal. No pleural or pericardial effusion. There are scattered coronary calcifications. Liver is homogeneous in attenuation. No apparent mass. Biliary tree normal in caliber. There is heterogeneous density in the gallbladder lumen suggesting sludge and/or stones. Spleen is normal in size. Pancreas is atrophic. Adrenal glands are unremarkable. There is mild left hydronephrosis and hydroureter to the level the pelvis. Kidneys are otherwise symmetric. There is a mildly dilated loops of fluid-filled proximal small bowel with distal small bowel collapse. The colon and appendix are unremarkable. No lymphadenopathy. There is a trace amount of free fluid at the left paracolic gutter. Uterus is enlarged and heterogeneous, measuring up to 16.7 cm. Ovaries are not well evaluated. There is a trace amount of free pelvic fluid. No pelvic lymphadenopathy. Bone windows show no acute findings. Mild multilevel spondylosis. Small umbilical hernia containing only fat. IMPRESSION: 1. Enlarged heterogeneous uterus, possibly related to fibroid. Uterine malignancy cannot be excluded. Correlate with any prior imaging studies to assess for interval change. 2. Mildly dilated fluid-filled loops of proximal small bowel with distal small bowel collapse. An exact transition point is not identified. This could be related to ileus or enteritis. Partial small bowel obstruction cannot be excluded in the absence of oral contrast. 3. Mild left-sided hydronephrosis and hydroureter to the level of the large pelvic mass, likely related to extrinsic compression distally. 4. Cholelithiasis. Electronically signed by: Jack Herr MD (06/25/2019 6:05 PM) [id number] DICTATED and SIGNED BY: JACK HERR MD DATE: 06/25/191804 (KARMEN CROSS APRN) Course & Med Decision Making Course & Med Decision Making Pertinent Labs and Imaging studies reviewed. (See chart for details) This is a 58-year-old female patient presenting to the ED today complaining of abdominal pain with nausea vomiting, symptoms began 2 days ago. Patient has history of chronic constipation, see history of present illness. Last bowel movement she reports was yesterday and hard. She reports being seen at yesterday and being told she has fibroids. CBC with a WBC of 12.8, CMP with glucose of 233 history of diabetes type 2, CT of the abdomen and pelvic was noted for fibroids uterine malignancy could not be excluded. Also noted for mild ileus/enteritis that they could not exclude small bowel obstruction. Also noted for left hydronephrosis and hydroureter. Also noted for cholelithiasis. Above results were communicated to patient, patient is very talkative, very insistent on having pain medicine for home use stating [facility] did not give her anything for pain and if we do not give her anything to go home with she will return. Informed patient with her chronic constipation and her current illeus/enteritis i recommend no pain medicine. She is extremely talkative. She is not vomiting. Offered her ducolax, mag citrate and d/c her with miralax rx an d dicyclomine. Provided GI for f/u. Her blood pressure was running in the 200s over low 100s, she reports she has history of hypertension and her medications were changed recently though she states the new change per her statement is not going to work for her. Recommended labetalol in the ED and requested her to follow-up with her own PCP tomorrow morning for blood pressure monitoring. Provided [employer] follow-up for her fibroids and possible malignancy. Provided general surgery for cholelithiasis. Provided OB for fibroids (KARMEN CROSS APRN) Liban Disclaimer Dragon Disclaimer This electronic medical record was generated, in whole or in part, using a voice recognition dictation system. (KARMEN CROSS APRN) Departure Departure Impression: Primary Impression: Ileus Additional Impressions: Constipation Fibroids Hypertension Disposition: 01 HOME, SELF-CARE Condition: STABLE Referrals: UNKNOWN PCP NAME (PCP) DAVID TORRES MD follow up for chronic gall stones JORDIN BREAUX MD follow up for chronic constipation ROLAND PIZARRO MD follow up for fibroids. Patient Instructions: Cholelithiasis, Constipation, Adult Additional Instructions: You were evaluated in the emergency room, we provided you speciality doctors for follow-up including GI doctor, general surgery. Also follow up with your Primary care doctor in the course of this week, as discussed increase your dietary fiber intake, water intake and take constipation medicines available over the counter. Scripts Ondansetron Hcl (ZOFRAN) 4 Mg Tablet 1 TAB PO Q6HRS, #20 TAB Prov: KARMEN CROSS APRN 06/25/19 Dicyclomine Hcl (DICYCLOMINE HCL) 20 Mg Tablet 1 TAB PO TID, #30 TAB 1 Refill Prov: KARMEN CROSS APRN 06/25/19 Problem Qualifiers Additional Impressions: Constipation Constipation type: unspecified constipation type Qualified Codes: K59.00 - Constipation, unspecified Hypertension Hypertension type: unspecified Qualified Codes: I10 - Essential (primary) hypertension KARMEN CROSS APRN Jun 25, 2019 19:20 EVIN ALVARENGA MD Jun 26, 2019 05:06
[2019-06-25 19:52] VITALS: BP 197/106
== END 2019-06-25 20:10 | disposition home or self-care (01) ==
LOC: ER 15:43
DX: K56.7 Ileus, unspecified (principal); I10 Essential (primary) hypertension; K59.00 Constipation, unspecified; D25.9 Leiomyoma of uterus, unspecified; K80.20 Calculus of gallbladder without cholecystitis without obstruction; E11.9 Type 2 diabetes mellitus without complications; E78.00 Pure hypercholesterolemia, unspecified; J45.909 Unspecified asthma, uncomplicated; Z88.1 Allergy status to other antibiotic agents; Z88.2 Allergy status to sulfonamides
CPT/HCPCS: 36415; 74177; 80053; 80307; 81001; 83690; 83735; 85025; 86140; 96361; 96374; 96375; 99285; G0480; J2270; J2405; J3490; J7030; Q9967